=== PATIENT | female | born 1980 | race African-American/Black ===

== ENCOUNTER → 2019-07-22 | Outpatient (CLI) | payer OTHER ==
[~2019-07-22] MED LIST: HYDR-3165 PO; ONDA4TAB7 PO
--- NOTE | 2019-07-22 11:31 | RAD ---
3 views lumbar spine without comparison for neck and back pain. FINDINGS: There is mild straightening of the normal lumbar lordosis. Intervertebral disc spaces appear well-maintained. No acute osseous or alignment abnormality is seen. Minimal degenerative changes are present. IMPRESSION: 1. No acute osseous or alignment abnormality of the lumbar spine. Electronically signed by: Gabriel Sosa MD (07/22/2019 11:28 AM) [id number]
--- NOTE | 2019-07-22 11:34 | RAD ---
4 views of the cervical spine without comparison for neck and back pain status post a fall a few months ago. FINDINGS: There is no fracture, or acute osseous or alignment abnormality of the cervical spine. There is straightening of the normal cervical lordosis. Mild disc space narrowing and osteophytes are seen at C5-6. C7-T1 is not well demonstrated on lateral projection, or swimmer's view. There are tiny vestigial cervical ribs. The atlantoaxial articulation is intact. IMPRESSION: 1. No acute osseous or alignment abnormality of cervical spine. 2. Mild degenerative disc disease at C5-6. 3. Tiny vestigial bilateral cervical ribs of doubtful clinical significance. Electronically signed by: Gabriel Sosa MD (07/22/2019 11:31 AM) [id number]
== END ==
LOC: PMG 10:43
PROVIDERS: ATTEND Family Medicine
DX: M50.322 Other cervical disc degeneration at C5-C6 level (principal); M48.02 Spinal stenosis, cervical region; M25.78 Osteophyte, vertebrae
CPT/HCPCS: 72040; 72100

== ENCOUNTER 2019-08-24 15:08 | Emergency (ER) | payer OTHER ==
[~2019-08-24] VITALS: Ht 162.6 cm; Wt 90.4 kg
--- NOTE | 2019-08-24 15:55 | RAD ---
EXAM: CHEST AP ONLY 08/24/2019 3:27 PM CLINICAL INDICATION:Cough, body aches COMPARISON:None TECHNIQUE:AP upright chest radiograph FINDINGS:The heart and mediastinum are normal. Lungs are well-expanded and clear. No pulmonary edema. No consolidation, pleural effusion, or pneumothorax. No acute osseous abnormality. IMPRESSION: Normal chest radiograph. Electronically signed by: Riana Sands MD (08/24/2019 3:52 PM) [id number]
[2019-08-24] MEDS ORDERED: IV NORMAL SALINE 1,000ML 1,000 ML IV ONE (16:00)
--- NOTE | 2019-08-24 16:02 | PHYS DOC ---
General Adult EDM: Chief Complaint: GENERALIZED BODY ACHES HPI: HPI: 39-year-old female presents with body aches, intermittent abdominal pain, and general ill feeling. She has had the symptoms are well for last couple of days. She feels like she is achy all over. She has had some lower extremity swelli ng. She has had a sore throat, but no difficulty eating or drinking. She does not believe that she has had a fever at home. Her abdominal pain is epigastric tenderness crampy a mild to moderate intensity. The patient has had pancreatitis in the past that was due to medication side effect. She has been taking of those medications. They were for Crohn's disease. She is not cur rently taking anything for her Crohn's disease. She denies bloody stools. She has no known COVID-19 exposures, but does work at a local [employer]. Review of Systems: Review of Systems: Constitutional: Body aches. Denies fever or chills Eyes: Denies change in visual acuity HENT: Denies nasal congestion or sore throat Respiratory: Denies cough or shortness of breath Cardiovascular: Denies chest pain or edema GI: Epigastric abdominal pain. Denies nausea, vomiting, bloody stools or diarrhea : Denies dysuria Musculoskeletal: Denies back pain or joint pain Integument: Denies rash Neurologic: Denies headache, focal weakness or sensory changes Endocrine: Denies polyuria or polydipsia Lymphatic: Denies swollen glands Psychiatric: Denies depression or anxiety Heart Score: Risk Factors: Risk Factors: DM, Current or recent (<one month) smoker, HTN, HLP, family history of CAD, obesity. Risk Scores: Score 0 - 3: 2.5% MACE over next 6 weeks - Discharge Home Score 4 - 6: 20.3% MACE over next 6 weeks - Admit for Clinical Observation Score 7 - 10: 72.7% MACE over next 6 weeks - Early Invasive Strategies Current Medications: Current Meds: Current Medications Medications (Trade) Dose Ordered Sig/Luiz Start Time Stop Time Status Last Admin Dose Admin Sodium Chloride 1,000 ml @ 1,000 mls/hr 1X ONCE 08/24/19 16:00 08/24/19 16:59 UNV Allergies: Allergies: Allergies Coded Allergies Type Severity Reaction Last Updated Verified NSAIDS (Non-Steroidal Anti-Inflamma Allergy Unknown 08/24/19 Yes gabapentin Allergy Unknown 08/24/19 Yes Physical Exam: PE: Constitutional: Well developed, well nourished, obese, no acute distress, non- toxic appearance. [] HENT: Normocephalic, atraumatic, bilateral external ears normal, oropharynx moist, no oral exudates, nose normal. [] Eyes: PERRLA, EOMI, conjunctiva normal, no discharge. [] Neck: Normal range of motion, no tenderness, supple, no stridor. [] Cardiovascular: Heart rate 110, regular rhythm, no murmur [] Lungs & Thorax: Bilateral breath sounds clear to auscultation [] Abdomen: Bowel sounds normal, soft, no tenderness, no masses, no pulsatile masses. [] Skin: Warm, dry, no erythema, no rash. [] Back: No tenderness, no CVA tenderness. [] Extremities: No tenderness, no cyanosis, no clubbing, ROM intact, no edema. [] Neurologic: Alert and oriented X 3, normal motor function, normal sensory function, no focal deficits noted. [] Psychologic: Affect normal, judgement normal, mood anxious. [] EKG: EKG: [] Radiology/Procedures: Radiology/Procedures: [] Impressions: EXAM: CHEST AP ONLY 08/24/2019 3:27 PM CLINICAL INDICATION:Cough, body aches COMPARISON:None TECHNIQUE:AP upright chest radiograph FINDINGS:The heart and mediastinum are normal. Lungs are well-expanded and clear. No pulmonary edema. No consolidation, pleural effusion, or pneumothorax. No acute osseous abnormality. IMPRESSION: Normal chest radiograph. Electronically signed by: Riana Sands MD (08/24/2019 3:52 PM) [id number] DICTATED AND SIGNED BY: RIANA SANDS MD DATE: 08/24/19 1552 CC: NONI BEACH DO; DAVID BALL MD ~ Course & Med Decision Making: Course & Med Decision Making Pertinent Labs and Imaging studies reviewed. (See chart for details) Chest x-ray is negative for acute findings. The patient has a slightly elevated white count of 12 3. The rest of her labs are essentially unremarkable. Her lipase is within normal limits. It is possible the patient is coming down with a viral illness. She could also be starting a Crohn's flare. There is always a chance that this is COVID-19. In any case, I believe supportive care is the best for her at this time. She does not meet admission criteria. She does not need any antibiotics. She is stable for discharge at this time. [] Dragon Disclaimer: Dragdiamond Disclaimer: This electronic medical record was generated, in whole or in part, using a voice recognition dictation system. Departure Departure: Impression: Primary Impression: Body aches Additional Impression: Viral syndrome Disposition: HOME/RESIDENCE PRIOR TO ADM Condition: STABLE Referrals: DAVID BALL MD (PCP) Patient Instructions: Viral Syndrome NONI BEACH DO August 24, 2019 16:02
[2019-08-24 16:17] LABS: BASO # 0.1 x10^3/uL (0.0-0.2); BASO % 1 % (0-3); EOS # 0.2 x10^3/uL (0.0-0.7); EOS % 2 % (0-3); HEMATOCRIT 39.2 % (36.0-47.0); HEMOGLOBIN 12.6 g/dL (12.0-15.5); LYMPH # 1.9 x10^3/uL (1.0-4.8); LYMPH % 16 % (24-48); MEAN CORPUSCULAR HEMOGLOBIN 28 pg (25-35); MEAN CORPUSCULAR HGB CONC 32 g/dL (31-37); MEAN CORPUSCULAR VOLUME 86 fL (79-100); MONO # 1.4 x10^3/uL (0.0-1.1); MONO % 11 % (0-9); NEUT # 8.7 x10^3uL (1.8-7.7); NEUT % 71 % (31-73); PLATELET COUNT 420 x10^3/uL (140-400); RED BLOOD COUNT 4.54 x10^6/uL (3.50-5.40); RED CELL DISTRIBUTION WIDTH 16.5 % (11.5-14.5); WHITE BLOOD COUNT 12.3 x10^3/uL (4.0-11.0)
[2019-08-24 16:35] LABS: ALBUMIN 2.9 g/dL (3.4-5.0); ALBUMIN/GLOBULIN RATIO 0.6 (1.0-1.7); CALCIUM 8.4 mg/dL (8.5-10.1); CREATININE 1.2 mg/dL (0.6-1.0); GFR 59.9; POTASSIUM 4.5 mmol/L (3.5-5.1); TOTAL BILIRUBIN 0.2 mg/dL (0.2-1.0); TOTAL PROTEIN 7.9 g/dL (6.4-8.2)
[2019-08-24 17:05] VITALS: BP 111/67
== END 2019-08-24 17:03 | disposition home or self-care (01) ==
LOC: ER 15:08
DX: B34.9 Viral infection, unspecified (principal); M79.10 Myalgia, unspecified site; Z88.8 Allergy status to other drugs, medicaments and biological substances
CPT/HCPCS: 36415; 71045; 80053; 83690; 85025; 99284; J7030

== ENCOUNTER 2019-09-23 09:16 | Emergency (ER) | payer OTHER ==
[~2019-09-23] VITALS: Ht 162.6 cm; Wt 90.0 kg
--- NOTE | 2019-09-23 09:37 | PHYS DOC ---
Past History Past Medical History: Anxiety, Arthritis, Bipolar, Pancreatitis, Other Additional Past Medical Histor: crohn's Past Surgical History: Other Additional Past Surgical Histo: part of bowel removed Alcohol Use: None General Adult EDM: Chief Complaint: CHEST PAIN HPI: HPI: Patient is a 39-year-old female presenting to the ED with a chief complaint of chest pain. Patient states the pain is been present for the last 2 days. Quinton jimenez describes the pain is constant and that is like a cramp. Patient describes the pain more in her right chest and left upper back. Patient was seen in the ER August 24, 2019 with similar complaints. Patient does state that she has history of pancreatitis. Patient denies fever, chills, nausea, vomiting, diarrhea, dysuria. Patient does say that she has difficulty with taking a deep breath. Patient also states that the pain is right in her sternal area as well. Patient denies abdominal pain. Patient does admit to being an active smoker but denies alcohol use or drug use. Review of Systems: Review of Systems: Constitutional: Denies fever or chills Eyes: Denies change in visual acuity HENT: Denies nasal congestion or sore throat Respiratory: Denies cough or shortness of breath Cardiovascular: Complains of chest pain GI: Denies abdominal pain, nausea, vomiting, bloody stools or diarrhea : Denies dysuria Musculoskeletal: Denies back pain or joint pain Neurologic: Denies headache, focal weakness or sensory changes Heart Score: Risk Factors: Risk Factors: DM, Current or recent (<one month) smoker, HTN, HLP, family history of CAD, obesity. Risk Scores: Score 0 - 3: 2.5% MACE over next 6 weeks - Discharge Home Score 4 - 6: 20.3% MACE over next 6 weeks - Admit for Clinical Observation Score 7 - 10: 72.7% MACE over next 6 weeks - Early Invasive Strategies Allergies: Allergies: Allergies Coded Allergies Type Severity Reaction Last Updated Verified NSAIDS (Non-Steroidal Anti-Inflamma Allergy Unknown 08/24/19 Yes gabapentin Allergy Unknown 08/24/19 Yes Physical Exam: PE: Constitutional: Well developed, well nourished, no acute distress, non-toxic appearance. [] HENT: Normocephalic, atraumatic Eyes: EOMI Neck: Normal range of motion, Supple Cardiovascular: Tachycardia with regular rhythm. Chest tenderness in the sternal area to palpation Lungs & Thorax: Bilateral breath sounds clear to auscultation [] Abdomen: Bowel sounds normal, soft, no tenderness Extremities: No tenderness, ROM intact Neurologic: Alert and oriented X 3 EKG: EKG: [EKG interpretation: 9: 28 AM on 09/23/2019 HR: 111 Sinus tachycardia Regular intervals Normal axis Nonspecific ST changes No STEMI Radiology/Procedures: Radiology/Procedures: [] Impressions: CXR IMPRESSION: No acute pulmonary finding. CT Abd/Pelvis IMPRESSION: 1. Mildly prominent downstream pancreatic duct. No convincing obstructing lesion is seen and there is no convincing CT evidence of pancreatitis. MRCP may be useful if there is concern for occult lesion. 2. Mild right renal atrophy with right renal cortical scarring and a small simple cyst and 8 mm suspected dystrophic calcification. 3. Mild hepatomegaly and tiny hepatic cysts. Course & Med Decision Making: Course & Med Decision Making Pertinent Labs and Imaging studies reviewed. (See chart for details) Ordered labs, chest x-ray, EKG, d-dimer, troponin, IV fluids. Labs are within normal limits except lipase which is elevated at 1052 Chest x-ray does not show any acute disease. D-dimer is negative. Ordered CT abdomen pelvis with IV contrast. CT does not show any signs of acute pancreatitis. Due to patient's initial presentation and pain control issues and pancreatitis I have offered admission to the patient. Patient does not want to be admitted to the COVID pandemic currently. Discussed benefits and risks of going home. Patient wants to go home and does not want to be admitted. We will discharge patient home per patient request with pain medication. Patient states that she will follow-up with her PCP. Discussed results and plan of care with patient. Patient is instructed to follow up with PCP in one to 2 days. Appropriate discharge instructions given to patient to return to the ED or to seek immediate medical evaluation. Patient is instructed to return to the ED if symptoms worsen or if any concerns. Dragon Disclaimer: Shubham Disclaimer: This electronic medical record was generated, in whole or in part, using a voice recognition dictation system. Departure Departure: Impression: Primary Impression: Pancreatitis Additional Impression: Chest pain Disposition: HOME/RESIDENCE PRIOR TO ADM Condition: STABLE Referrals: DAVID BALL MD (PCP) Patient Instructions: Acute Pancreatitis, Chest Pain (Nonspecific) Additional Instructions: Discussed results and plan of care with patient. Patient is instructed to follow up with PCP in one to 2 days. Appropriate discharge instructions given to patient to return to the ED or to seek immediate medical evaluation. Patient is instructed to return to the ED if symptoms worsen or if any concerns. Scripts Ondansetron Hcl (ZOFRAN) 4 Mg Tablet 1 TAB PO Q6HRS for nausea, #15 TAB Prov: NORBERTO SANDHU DO 09/23/19 Hydrocodone Bit/Acetaminophen (NORCO 5-325 TABLET) 1 Each Tablet 1 TAB PO PRN Q6HRS PRN for PAIN for 4 Days, #15 TAB 0 Refills Prov: NORBERTO SANDHU DO 09/23/19 Justification of Admission: Justification of Admission: Justification of Admission Dx: Yes Comments: NORBERTO Amin DO Sep 23, 2019 09:37
[2019-09-23] MEDS ORDERED: IV NORMAL SALINE 1,000ML 1,000 ML IV ONE (10:00)
--- NOTE | 2019-09-23 10:07 | RAD ---
EXAM: Chest, 2 views. HISTORY: Pain. COMPARISON: 08/04/2019 FINDINGS: 2 views of the chest are obtained. There is no infiltrate, pleural effusion or pneumothorax. The heart is normal in size. IMPRESSION: No acute pulmonary finding. Electronically signed by: Beronica Douglas MD (09/23/2019 10:04 AM) [id number]
[2019-09-23 10:16] VITALS: BP 110/71
[2019-09-23 10:24] LABS: BASO # 0.1 x10^3/uL (0.0-0.2); BASO % 1 % (0-3); EOS # 0.2 x10^3/uL (0.0-0.7); EOS % 2 % (0-3); HEMATOCRIT 41.8 % (36.0-47.0); HEMOGLOBIN 13.3 g/dL (12.0-15.5); LYMPH # 1.8 x10^3/uL (1.0-4.8); LYMPH % 20 % (24-48); MEAN CORPUSCULAR HEMOGLOBIN 28 pg (25-35); MEAN CORPUSCULAR HGB CONC 32 g/dL (31-37); MEAN CORPUSCULAR VOLUME 88 fL (79-100); MONO # 0.7 x10^3/uL (0.0-1.1); MONO % 8 % (0-9); NEUT # 6.3 x10^3uL (1.8-7.7); NEUT % 70 % (31-73); PLATELET COUNT 380 x10^3/uL (140-400); RED BLOOD COUNT 4.76 x10^6/uL (3.50-5.40); RED CELL DISTRIBUTION WIDTH 16.6 % (11.5-14.5)
[2019-09-23] MEDS ORDERED: MORPHINE SULFATE 4 MG/ML DISP.SYRIN. IV ONE (11:00)
[2019-09-23] MEDS ORDERED: ONDANSETRON PF 4 MG/2 ML VIAL. IVP ONE (11:00)
[2019-09-23 11:43] LABS: CALCIUM 7.6 mg/dL (8.5-10.1); GFR 73.9
[2019-09-23 11:49] LABS: ALBUMIN 2.7 g/dL (3.4-5.0); ALBUMIN/GLOBULIN RATIO 0.7 (1.0-1.7); TOTAL BILIRUBIN 0.2 mg/dL (0.2-1.0); TOTAL PROTEIN 6.5 g/dL (6.4-8.2)
[2019-09-23] MEDS ORDERED: IOHEXOL 300 MG/ML 75 ML VIAL. IV ONE (13:00)
--- NOTE | 2019-09-23 13:00 | RAD ---
EXAM: Abdomen and pelvis CT with intravenous contrast. HISTORY: Pancreatitis. TECHNIQUE: Computed tomographic images of the abdomen and pelvis were obtained following the administration of intravenous contrast. Multiplanar reformatting was performed. *One or more of the following individualized dose reduction techniques were utilized for this examination: 1. Automated exposure control. 2. Adjustment of the mA and/or kV according to patient size. 3. Use of iterative reconstruction technique. COMPARISON: None. FINDINGS: Evaluation of the lower thorax is unremarkable. There are tiny cysts within the liver. No suspicious hepatic lesion is seen. There is mild hepatomegaly. The gallbladder is unremarkable. There is a prominent downstream pancreatic duct. No pancreatic lesion is seen. The spleen and adrenal glands are unremarkable. There is right renal cortical scarring with adjacent 1.7 cm cyst and 8 mm calcification. There is mild right renal atrophy. There is no hydronephrosis or solid renal lesion. There is evidence of appendectomy. There is moderate colonic stool. There is no evidence of bowel obstruction or abnormal bowel wall thickening. The urinary bladder and uterus are unremarkable. There are multiple ovarian follicles. There is no lymphadenopathy. The aorta is normal in caliber. There is no suspicious osseous lesion. IMPRESSION: 1. Mildly prominent downstream pancreatic duct. No convincing obstructing lesion is seen and there is no convincing CT evidence of pancreatitis. MRCP may be useful if there is concern for occult lesion. 2. Mild right renal atrophy with right renal cortical scarring and a small simple cyst and 8 mm suspected dystrophic calcification. 3. Mild hepatomegaly and tiny hepatic cysts. Electronically signed by: Beronica Douglas MD (09/23/2019 12:57 PM) [id number]
[2019-09-23] MEDS ORDERED: HYDR-3165 PO (13:10)
[2019-09-23] MEDS ORDERED: ONDA4TAB7 PO (13:10)
--- NOTE | 2019-09-23 14:12 | EKG ---
[address] [address] Test Date: 2019-09-23 Test Time: 09:28:29 Pat Name: SUGAR PRICE Department: Room: Gender: F Applications Support Specialist: ARIN : 1980 Requested By: NORBERTO SANDHU Order Number: [id number] Reading MD: Measurements Intervals [place] Rate: 111 P: 64 PA: 120 QRS: 70 QRSD: 76 T: 31 QT: 320 QTc: 438 Interpretive Statements SINUS TACHYCARDIA OTHERWISE NORMAL ECG RI6.02 No previous ECG available for comparison
== END 2019-09-23 13:34 | disposition home or self-care (01) ==
LOC: ER 09:16
DX: K86.1 Other chronic pancreatitis (principal); R07.89 Other chest pain; M54.6 Pain in thoracic spine; F41.9 Anxiety disorder, unspecified; M19.90 Unspecified osteoarthritis, unspecified site; F31.9 Bipolar disorder, unspecified; Z98.890 Other specified postprocedural states; Z88.0 Allergy status to penicillin
CPT/HCPCS: 36415; 71046; 74177; 80053; 83690; 84484; 85025; 85379; 93005; 96374; 99285; J2270; J7030; Q9967

== ENCOUNTER 2020-10-18 17:43 | Emergency (ER) | payer OTHER ==
[~2020-10-18] VITALS: Ht 160 cm; Wt 63.6 kg
[2020-10-18 17:57] VITALS: BP 96/67
--- NOTE | 2020-10-18 18:53 | PHYS DOC ---
Past History Past Medical History: High Cholesterol, Hypertension Additional Past Medical Histor: crohn's Past Surgical History: Other Additional Past Surgical Histo: part of bowel removed Alcohol Use: None General Adult EDM: Chief Complaint: DIARRHEA HPI: HPI: ".. I think I am having a really bad Crohn's exacerbation... Mesalamine because it caused great pancreas problems... I hurt all over .. my stomach..hurt.. my bones hurt...just fucking hurt..".".I ve had the shits the last three days.." Patient is a 40-year-old year old [female] who presents with with complaints of diffuse abdomen pain last couple days. Patient also complaining of generalized myalgia, arthralgia and malaise. Patient states pain is similar to when she has had previous Crohn's or colitis flares. Patient denies any travel. Patient denies any sick contacts. Patient denies any intake bad food. Patient has not gotten Covid vaccination or flu vaccination. Patient follows with Dr. Chamberlain. Has also follow-up with Dr. Aguirre in the past reportedly at [facility]. Patient reportedly not on any Crohn's suppressor meds at this time. Patient has not gotten Covid vaccination and states she does not plan to get it. Review of Systems: Review of Systems: Constitutional: Subjective complaints of fever Eyes: Denies change in visual acuity HENT: Denies nasal congestion or sore throat Respiratory: Denies cough or shortness of breath Cardiovascular: Denies chest pain or edema GI: Complaints of abdominal pain, nausea. Denies vomiting, bloody stools. Complains of diarrhea : Denies dysuria Musculoskeletal: Complains of generalized arthralgia and myalgia Integument: Denies rash Neurologic: Denies headache, focal weakness or sensory changes Endocrine: Denies polyuria or polydipsia Lymphatic: Denies swollen glands Psychiatric: Denies depression or anxiety Family History: Family History: Noncontributory to presentation Current Medications: Current Meds: See nursing for home meds Allergies: Allergies: Allergies Coded Allergies Type Severity Reaction Last Updated Verified NSAIDS (Non-Steroidal Anti-Inflamma Allergy Intermediate 10/18/20 Yes gabapentin Allergy Intermediate 10/18/20 Yes Physical Exam: PE: Constitutional: reports acute distress, non-toxic appearance. [] HENT: Normocephalic, atraumatic, bilateral external ears normal, oropharynx dry, no oral exudates, nose normal. [] Eyes: PERRLA, EOMI, conjunctiva normal, no discharge. [] Neck: Normal range of motion, no tenderness, supple, no stridor. [] Cardiovascular: Tachycardia heart rate regular rhythm, no murmur [] Lungs & Thorax: Bilateral breath sounds equal at apex with scattered wheezes on auscultation [] Abdomen: Bowel sounds hyperactive,, soft, generalized tenderness, no masses, no pulsatile masses. No focal areas of rebound. Skin: Warm, dry, no erythema, no rash. [] Back: No tenderness, no CVA tenderness. [] Extremities: No tenderness, no cyanosis, no clubbing, ROM intact, no edema. No cording appreciated Neurologic: Alert and oriented X 3, moves all extremities on request, does have distal sensory,, no focal deficits noted. [] Psychologic: Affect anxious, judgement normal, mood normal. [] Current Patient Data: Vital Signs: Vital Signs Date Time Temp Pulse Resp B/P (MAP) Pulse Ox O2 Delivery O2 Flow Rate FiO2 10/18/20 17:57 100.2 116 20 96/67 98 Room Air EKG: EKG: My interpretation EKG shows a sinus tachycardia 105 bpm. No findings of acute STEMI with contralateral changes. [] Time of EKG is 1926 hrs. Radiology/Procedures: Radiology/Procedures: [][place] [address] IMAGING REPORT Signed PATIENT: SUGAR PRICE ACCOUNT: [id number] : 1980 LOCATION: ER AGE: 40 SEX: F EXAM STATUS: REG ER ORD. PHYSICIAN: SIMONE LUND MD REASON: pain, hx of colitis, crohns PROCEDURE: CT ABD PEL W/ORAL CONTRST ONLY CT abdomen pelvis with oral contrast, without intravenous contrast. HISTORY: Pain, history colitis, Crohn's CT abdomen pelvis was done without intravenous contrast. There are patchy infiltrates in both lung bases consistent with Covid-19 pneumonia. Liver is normal in appearance. There is no calcified gallstone. Spleen is unremarkable. Adrenal glands are normal. There is a dilated pancreatic duct. Definite pancreatic mass is not identified. There is no calcified gallstone. There is no mass or hydronephrosis or calculus in the left kidney. There is a cyst at the upper right kidney with calcification about the margin of the lesion similar to the prior CT from August 2019. A ureteral calculus is not identified. Uterus and ovaries are unremarkable. Bowel pattern is normal. There is no bowel obstruction or ascites. IMPRESSION: 1. Infiltrates in the lung bases consistent with Covid-19 pneumonia. 2. Right intrarenal calculus. 3. No bowel obstruction or other acute finding in the abdomen or pelvis. PQRS Compliance Statement: One or more of the following individualized dose reduction techniques were utilized for this examination: 1. Automated exposure control 2. Adjustment of the mA and/or kV according to patient size 3. Use of iterative reconstruction technique Electronically signed by: Crow Hardy MD (10/18/2020 10:42 PM) [facility] DICTATED AND SIGNED BY: CROW HARDY MD DATE: 10/18/202234 CC: SIMONE LUND MD; DAVID CHAMBERLAIN MD ~MTH0 [address] [place] [address] IMAGING REPORT Signed PATIENT: SUGAR PRICE ACCOUNT: [id number] : 1980 LOCATION: ER AGE: 40 SEX: F EXAM STATUS: REG ER ORD. PHYSICIAN: SIMONE LUND MD REASON: pain PROCEDURE: ACUTE ABDOMEN SERIES Three-view acute abdominal series. HISTORY: Pain 3 views were taken for an acute abdominal series. Heart is normal in size. There is no pleural effusion. There is possible atelectasis in the right lung base on the chest x-ray but that was not visualized on the upright abdomen film. There is no pleural effusion. No other infiltrates are noted. Upright view the abdomen shows no free air. Bowel pattern is unremarkable. There are no abnormal calcifications. There is a right renal calculus similar to the previous CT from August 2019. IMPRESSION: 1. Right renal calculus. 2. No bowel obstruction or other acute finding in the abdomen. 3. Mild atelectasis right lung base without confluent infiltrates. Electronically signed by: Crow Hardy MD (10/18/2020 8:51 PM) [facility] DICTATED AND SIGNED BY: CROW HARDY MD DATE: 10/18/202046 CC: SIMONE LUND MD; DAVID CHAMBERLAIN MD ~MTH0 0 Heart Score: C/O Chest Pain: N/A HEART Score for Chest Pain: HEART Score for Chest Pain Response (Comments) Value History Slighlty/Non-Suspicious 0 ECG Nonspecific Repolarizatio 1 Age < 45 0 Risk Factors 1 or 2 Risk Factors 1 Troponin < Normal Limit 0 Total 2 Risk Factors: Risk Factors: DM, Current or recent (<one month) smoker, HTN, HLP, family history of CAD, obesity. Risk Scores: Score 0 - 3: 2.5% MACE over next 6 weeks - Discharge Home Score 4 - 6: 20.3% MACE over next 6 weeks - Admit for Clinical Observation Score 7 - 10: 72.7% MACE over next 6 weeks - Early Invasive Strategies Course & Med Decision Making: Course & Med Decision Making Pertinent Labs and Imaging studies reviewed. (See chart for details) Patient stay on a clear fluid diet for the next couple days. Resume her Crohn's meds. Advised to self isolate since her x-ray was consistent with viral pneumonia or Covid presentation. Follow-up Covid results. Avoid further illicit drug use. Take Tylenol and ibuprofen for discomfort. Impression: 1. Abdomen pain 2. History of Crohn's 3. Polysubstance abuse-drug screen positive for PCP, methamphetamine, benzos, marijuana, 4. Elevated CK 942 [] Dragon Disclaimer: Dragon Disclaimer: This electronic medical record was generated, in whole or in part, using a voice recognition dictation system. Departure Departure: Referrals: DAVID CHAMBERLAIN MD (PCP) Shubham Disclaimer This chart was dictated in whole or in part using Voice Recognition software in a busy, high-work load, and often noisy Emergency Department environment. It ma y contain unintended and wholly unrecognized errors or omissions. SIMONE LUND MD Oct 18, 2020 18:53
[2020-10-18] MEDS ORDERED: IOHEXOL 300 MG/ML 75 ML VIAL. IV ONE (19:15)
[2020-10-18] MEDS ORDERED: ONDANSETRON PF 4 MG/2 ML VIAL. IVP ONE (19:15)
[2020-10-18] MEDS ORDERED: FAMOTIDINE 20 MG/2 ML VIAL IVP ONE (19:15)
[2020-10-18] MEDS ORDERED: IV RINGERS SOLUTION,LACTATED 1,000 ML IV SCH (19:15)
[2020-10-18] MEDS ORDERED: MORPHINE SULFATE 10 MG/ML SYRINGE. SQ ONE (19:15)
[2020-10-18] MEDS ORDERED: methylPREDNISolone SOD SUCC PF 125 MG/2 ML VIAL. IV ONE (19:15)
[2020-10-18] MEDS ORDERED: IOHEXOL 240 MG/ML 50ML VIAL. ONE (19:16)
--- NOTE | 2020-10-18 20:53 | RAD ---
Three-view acute abdominal series. HISTORY: Pain 3 views were taken for an acute abdominal series. Heart is normal in size. There is no pleural effusi on. There is possible atelectasis in the right lung base on the chest x-ray but that was not visualiz ed on the upright abdomen film. There is no pleural effusion. No other infiltrates are noted. Upright view the abdomen shows no free air. Bowel pattern is unremarkable. There are no abnormal calc ifications. There is a right renal calculus similar to the previous CT from August 2019. IMPRESSION: 1. Right renal calculus. 2. No bowel obstruction or other acute finding in the abdomen. 3. Mild atelectasis right lung base without confluent infiltrates. Electronically signed by: Crow Hardy MD (10/18/2020 8:51 PM) [facility]
[2020-10-18 21:49] LABS: BASO % 0 % (0-3); EOS % 0 % (0-3); HEMATOCRIT 46.6 % (36.0-47.0); HEMOGLOBIN 14.9 g/dL (12.0-15.5); LYMPH # 1.1 x10^3/uL (1.0-4.8); LYMPH % 26 % (24-48); MEAN CORPUSCULAR HEMOGLOBIN 29 pg (25-35); MEAN CORPUSCULAR HGB CONC 32 g/dL (31-37); MEAN CORPUSCULAR VOLUME 89 fL (79-100); MONO # 0.4 x10^3/uL (0.0-1.1); MONO % 10 % (0-9); NEUT # 2.7 x10^3uL (1.8-7.7); NEUT % 63 % (31-73); PLATELET COUNT 235 x10^3/uL (140-400); RED BLOOD COUNT 5.22 x10^6/uL (3.50-5.40); WHITE BLOOD COUNT 4.3 x10^3/uL (4.0-11.0)
[2020-10-18 21:52] LABS: CALCIUM 7.9 mg/dL (8.5-10.1); CREATININE 1.2 mg/dL (0.6-1.0); GFR 59.6; POTASSIUM 4.1 mmol/L (3.5-5.1)
[2020-10-18 22:05] LABS: BARBITURATES NEG (NEG); BENZODIAZEPINES POS (NEG); CANNABINOIDS POS (NEG); COCAINE NEG (NEG); METHADONE NEG (NEG); OPIATES NEG (NEG); PHENCYCLIDINE POS (NEG)
[2020-10-18 22:06] LABS: ALBUMIN 3.4 g/dL (3.4-5.0); DIRECT BILIRUBIN 0.1 mg/dL (0.0-0.2); TOTAL BILIRUBIN 0.3 mg/dL (0.2-1.0); TOTAL PROTEIN 7.4 g/dL (6.4-8.2)
[2020-10-18 22:07] LABS: AMPHETAMINE/METHAMPHETAMINE POS (NEG)
[2020-10-18] MEDS ORDERED: ONDANSETRON ODT 4 MG TAB.RAPDIS PO ONE (22:15)
[2020-10-18 22:18] LABS: BACTERIA,URINE 0 /HPF (0-FEW); BILIRUBIN,URINE NEG (NEG); CLARITY,URINE HAZY; COLOR,URINE YELLOW; GLUCOSE,URINE NEG (NEG); NITRITE,URINE NEG (NEG); RBC,URINE 0 /HPF (0-2); SQUAMOUS EPITHELIAL CELL,UR FEW /LPF; UROBILINOGEN,URINE 0.2 mg/dL (0.2 mg/dL); WBC,URINE OCC /HPF (0-4)
--- NOTE | 2020-10-18 22:44 | RAD ---
CT abdomen pelvis with oral contrast, without intravenous contrast. HISTORY: Pain, history colitis, Crohn's CT abdomen pelvis was done without intravenous contrast. There are patchy infiltrates in both lung ba ses consistent with Covid-19 pneumonia. Liver is normal in appearance. There is no calcified gallston e. Spleen is unremarkable. Adrenal glands are normal. There is a dilated pancreatic duct. Definite pa ncreatic mass is not identified. There is no calcified gallstone. There is no mass or hydronephrosis or calculus in the left kidney. There is a cyst at the upper right kidney with calcification about th e margin of the lesion similar to the prior CT from August 2019. A ureteral calculus is not identified. Uterus and ovaries are unremarkable. Bowel pattern is normal. There is no bowel obstruction or ascit es. IMPRESSION: 1. Infiltrates in the lung bases consistent with Covid-19 pneumonia. 2. Right intrarenal calculus. 3. No bowel obstruction or other acute finding in the abdomen or pelvis. PQRS Compliance Statement: One or more of the following individualized dose reduction techniques were utilized for this examinat ion: 1. Automated exposure control 2. Adjustment of the mA and/or kV according to patient size 3. Use of iterative reconstruction technique Electronically signed by: Crow Hardy MD (10/18/2020 10:42 PM) [facility]
== END 2020-10-18 23:04 | disposition home or self-care (01) ==
LOC: ER 17:43
DX: K50.90 Crohn's disease, unspecified, without complications (principal); E78.5 Hyperlipidemia, unspecified; I10 Essential (primary) hypertension; Z20.822 Contact with and (suspected) exposure to COVID-19
CPT/HCPCS: 74022; 74176; 80048; 80076; 80307; 81001; 82150; 82550; 83690; 84484; 85025; 93005; 96372; 99285; C9803; J2270; U0003